=== PATIENT | female | born 1945 | race Caucasian/White ===

== ENCOUNTER → 2018-05-09 07:40 | Outpatient (CLI) | payer BC, MEDICARE, SELFPAY ==
--- NOTE | 2018-05-09 | CA_ITS ---
PROCEDURE: 2-D M-mode and color Doppler study INDICATIONS FOR THE TEST: Chest pain COPD Heart Murmur+ Tobacco Smoking Palpitations Fatigue+ Syncope Edema+ Hypertension+Diabetes Mellitus+ Rheumatic Fever SOB PEÑA+Obesity Hyperlipidemia+ Family History HD Additional History Patient has breast implants, limited visualization in 4 chamber PATIENT INFORMATION HEIGHT: 62 WEIGHT: 130 GENDER: Female B/P: 152/89 2-D/M-MODE INTERPRETATION: 2-D MEASUREMENTS OBSERVED VALUES IN CMS Right Ventricular Dimension (RVDd) 2.3 Interventricular Septum (Thickness)(IVsd) 0.8 Left Ventricular Internal Dimensions(LVIDd) 4.7 Left Ventricular Posterior Wall (Thickness)(LVPWd) 0.7 Aortic Root 2.5 Aortic Cusp Separation 1.6 Left Atrial Dimensions (LAD) 2.2 2D 1. Left atrium is qualitatively mildly enlarged, left ventricle is normal size, there is no concentric left ventricular hypertrophy, visually estimated ejection fraction 55% with no regional wall motion abnormality. 2. The right atrium and the ventricular normal size and contractility. 3. The aortic valve is minimally thickened and fibrosed leaflet continue to display mobility. 4. The mitral and tricuspid valvular grossly normal 5. The pulmonic valve is poorly visualized. 6. No significant pericardial effusion noted. DOPPLER INTERROGATION: Doppler interrogation of the aortic, mitral and tricuspid valvular presence of mild mitral and tricuspid regurgitation, tricuspid regurgitation jet velocity is inadequate for calculation of the right ventricular systolic pressure, grade 1 diastolic dysfunction seen tissue Doppler evidence of raised left atrial pressure. CONCLUSION: 1. Mildly enlarged left atrium, normal left ventricular size, visually estimated ejection fraction 55% with no regional wall motion abnormality, grade 1 diastolic dysfunction seen with tissue Doppler evidence of raised left atrial pressure. 2. Mild mitral and tricuspid regurgitation 3. No significant pericardial effusion noted.
== END ==
PROVIDERS: PCP Family Medicine; Visit Provider Family Medicine
DX: R01.1 Cardiac murmur, unspecified (principal)
CPT/HCPCS: 93306

== ENCOUNTER → 2019-05-29 11:39 | Outpatient (CLI) | payer BC, MEDICARE, SELFPAY ==
--- NOTE | 2019-05-29 11:45 | XR_ITS ---
PROCEDURE: XR HAND RT MIN 3V CLINICAL INDICATION: RT HAND PAIN Pain and swelling COMPARISON: No exams were available for comparison FINDINGS: No fracture or dislocation. No lytic or blastic change. There is normal mineralization. There are moderate osteoarthritic changes at the 2nd DIP joint. Minor osteoarthritic changes are present at the 3rd 4th and 5th DIP joint and the 1st metacarpophalangeal joint. Other findings:None. IMPRESSION: Osteoarthritis Dictated by: Lionel Duenas MD 05/29/2019 12:51 Electronically signed by Lionel Duenas MD in [place] 05/29/2019 12:51
== END ==
PROVIDERS: PCP Family Medicine; Visit Provider Nurse Practitioner
DX: M79.641 Pain in right hand (principal)
CPT/HCPCS: 73130

== ENCOUNTER → 2020-10-23 09:12 | Outpatient (CLI) | payer BC, MEDICARE, SELFPAY ==
--- NOTE | 2020-10-23 09:15 | XR_ITS ---
PROCEDURE: XR DEXA AXIAL SKELETON CLINICAL HISTORY: VITAMIN D DEFICIENCY COMPARISON: No exams were available for comparison FINDINGS: The right hip BMD is 0.623 with a T-score of -2.0. The left hip BMD is 0.587 with a T-score of -2.4. The lumbar spine BMD is 0.805 with a T-score of -2.2. IMPRESSION: This patient is considered osteopenic according to the World Health Organization criteria. Bone density is between 10 and 25 percent below young normal. Fracture risk is moderate. Treatment is advised. Based on these results a follow-up exam is recommended in 2 year. Dictated by: Lionel Duenas MD 10/23/2020 20:18 Lionel Duenas MD in [place] 10/26/2020 08:38
== END ==
PROVIDERS: PCP Family Medicine; Visit Provider Family Medicine
DX: Z13.820 Encounter for screening for osteoporosis (principal); Z78.0 Asymptomatic menopausal state; E55.9 Vitamin D deficiency, unspecified
CPT/HCPCS: 77080

== ENCOUNTER → 2021-11-09 13:39 | Outpatient (CLI) | payer BC, MEDICARE, SELFPAY ==
[2021-11-09 19:05] LABS: Basophils % 0.5 % (0.1-2.0); Eosinophils # 0.1 K/mm3 (0.0-0.4); Eosinophils % 2.7 % (0.1-12.0); Hematocrit 48.6 % (37.0-47.0); Hemoglobin 14.9 g/dL (12.2-16.2); Lymphocytes # 2.3 K/mm3 (0.7-4.5); Lymphocytes % 45.6 % (10-50); Mean Corpuscular HGB Conc 30.7 g/dL (31.8-35.4); Mean Corpuscular Hemoglobin 32.1 pg (27.0-31.2); Mean Corpuscular Volume 104.5 fl (81-99); Mean Platelet Volume 9.6 fl (7.4-10.4); Monocytes # 0.3 K/mm3 (0.1-1.0); Monocytes % 6.7 % (1.7-9.3); Neutrophils # 2.2 K/mm3 (1.8-7.8); Neutrophils % 44.5 % (37.0-80.0); Platelet Count 368 K/mm3 (142-424); Red Blood Count 4.65 M/mm3 (4.20-5.40); Red Cell Distribution Width 12.7 % (11.5-17.5)
== END ==
PROVIDERS: PCP Nurse Practitioner; Visit Provider Nurse Practitioner
DX: R10.32 Left lower quadrant pain (principal); R30.0 Dysuria; B95.7 Other staphylococcus as the cause of diseases classified elsewhere
CPT/HCPCS: 85025; 87086; 87088; 87186

== ENCOUNTER → 2022-08-04 23:16 | Outpatient (CLI) | payer BC, MEDICARE, SELFPAY ==
[2022-08-04 18:38] LABS: Basophils % 0.3 % (0.1-2.0); Eosinophils # 0.1 K/mm3 (0.0-0.4); Eosinophils % 1.1 % (0.1-12.0); Hematocrit 44.7 % (37.0-47.0); Hemoglobin 14.7 g/dL (12.2-16.2); Lymphocytes # 2.4 K/mm3 (0.7-4.5); Lymphocytes % 33.9 % (10-50); Mean Corpuscular HGB Conc 32.8 g/dL (31.8-35.4); Mean Corpuscular Hemoglobin 33.7 pg (27.0-31.2); Mean Corpuscular Volume 102.8 fl (81-99); Mean Platelet Volume 8.7 fl (7.4-10.4); Monocytes # 0.4 K/mm3 (0.1-1.0); Monocytes % 5.5 % (1.7-9.3); Neutrophils # 4.3 K/mm3 (1.8-7.8); Neutrophils % 59.1 % (37.0-80.0); Platelet Count 291 K/mm3 (142-424); Red Blood Count 4.35 M/mm3 (4.20-5.40); Red Cell Distribution Width 13.1 % (11.5-17.5); White Blood Count 7.2 K/mm3 (4.8-10.8)
[2022-08-04 18:48] LABS: Alanine Aminotransferase 21 U/L (12-78); Albumin Level 4.7 g/dl (3.5-5.0); Albumin/Globulin Ratio 1.6 (1.1-1.8); Alkaline Phosphatase 71 U/L (38-126); Anion Gap 11.2 mEq/L (5-15); Aspartate Amino Transferase 37 U/L (14-36); Bilirubin,Total 1.4 mg/dl (0.2-1.3); Blood Urea Nitrogen 14 mg/dl (7-17); Calcium 9.2 mg/dl (8.4-10.2); Carbon Dioxide 26 mmol/L (22.0-30.0); Chloride 104 mmol/L (98-107); Chol/HDL Ratio 2.6 (1-3.5); Cholesterol 221 mg/dl (140-200); Estimated Glomerular Filt Rate 97 ml/min (>60); GFR (African American) 118 ML/MIN (>60); Globulin 2.9 g/dL (1.3-3.2); Glucose 87 mg/dl (74-100); HDL Cholesterol 86 mg/dl (40-60); Potassium 4.2 mmoL/L (3.5-5.1); Sodium 137 mmol/L (136-145); Total Protein,Serum 7.6 g/dl (6.3-8.2); Triglycerides 111 mg/dl (30-150); VLDL Cholesterol 22 mg/dL (0-40)
[2022-08-04 19:05] LABS: Free T4 (Free Thyroxine) 1.61 ng/dl (0.78-2.19)
[2022-08-04 19:18] LABS: Direct LDL Cholesterol 111.19 mg/dL (100-129)
[2022-08-04 19:19] LABS: Thyroid Stimulating Hormone 0.43 uIU/mL (0.465-4.68)
[2022-08-04 19:38] LABS: Vitamin B12 745 pg/mL (239-931)
[2022-08-04 19:54] LABS: Creatinine,Urine Random 15 mg/dL (Not Estab.)
[2022-08-04 20:08] LABS: Hemoglobin A1C 8.5 % (4.0-6.0)
[2022-08-04 20:26] LABS: 25-OH Vitamin D, Total 38.3 ng/mL (30-100)
== END ==
PROVIDERS: PCP Nurse Practitioner; Visit Provider Nurse Practitioner
DX: E03.9 Hypothyroidism, unspecified (principal); E11.9 Type 2 diabetes mellitus without complications; E55.9 Vitamin D deficiency, unspecified; E78.5 Hyperlipidemia, unspecified; I10 Essential (primary) hypertension; K21.9 Gastro-esophageal reflux disease without esophagitis; M19.90 Unspecified osteoarthritis, unspecified site; M81.0 Age-related osteoporosis without current pathological fracture
CPT/HCPCS: 80053; 80061; 82043; 82306; 82570; 82607; 83036; 84439; 84443; 85025

== ENCOUNTER 2022-10-14 08:26 | Day surgery (SDC) | payer BC, MEDICARE, SELFPAY ==
[2022-10-13 08:58] VITALS: BMI 23.0
[2022-10-14 08:42] VITALS: BP 174/83; PULSE 80; RESP 18; TEMP 36.1; O2SAT 94
[2022-10-14 09:03] LABS: POC Glucose,Bedside 113 (70-110)
[2022-10-14 09:21] VITALS: O2SAT 94
--- NOTE | 2022-10-14 10:00 | P.PCN_ITS ---
Procedure: Date: 10/14/22 Patient Date of :: 1945 Procedure Performed:: Colonoscopy with snare polypectomy Indications:: Patient is a 77-year-old referred for screening colonoscopy. She had prior colonoscopy greater than [address] Mata which was reportedly normal. Performing Provider:: Solitario Finley MD Referring Provider:: Sandra Varela Sedation:: MAC sedation Procedure:: Patient history was obtained and appropriate physical examination was performed. Patient's medications and allergies were reviewed. Informed consent was obtained after explaining the benefits, alternatives, and risks of the procedure including, but not limited to, bleeding, perforation, missed lesions, and adverse reaction to anesthesia medications. Patient was transported to endoscopy procedure room. Patient was connected to monitoring devices. Throughout the procedure the patient's blood pressure, pulse, and oxygen saturations were monitored continuously. Patient identification and planned procedure were verified by the staff. Patient was positioned in lateral decubitus position. Digital anorectal exam was performed. Variable stiffness Olympus colonoscope was inserted and advanced under direct visualization to the cecum. Adequacy of the colonic preparation was noted. The colonoscope was then slowly withdrawn while carefully examining the color, texture, anatomy, and integrity of the mucosoa circumferentially. Within the rectum retroflexion was performed. Colonoscope was then withdrawn. Findings:: Colonic preparation was fair with particulate opaque stool and some undigested vegetable matter throughout the colon. This could be mostly cleared. She had some left-sided diverticulosis. There was a small to moderate adenomatous pedu nculated polyp in the sigmoid colon at approximately 40 cm removed with hot snare. Retroflexion within the rectum revealed nonpathologic internal hemorrhoids. Impression: Fair prep Sigmoid diverticulosis Small to moderate adenomatous sigmoid polyp Recommendations:: Follow-up colonoscopy pending pathology. Given the adenomatous polyp and fair prep likely 3 years. Complications:: None immediate Estimated blood obtained (mL): 1 Colonoscopy Component Colonoscopy Component Was a colonoscopy performed during today's procedure?: Yes Recommended follow up colonoscopy of at least 10 years?: No If no, follow up colonoscopy recommended in ___ years?: ~3? Reason for not recommending >/= 10 yr follow-up interval?: Polyp pathology pending. Prep fair.
[2022-10-14 10:05] VITALS: BP 125/72; PULSE 69; RESP 16; TEMP 36.5; O2SAT 95
[2022-10-14 10:15] VITALS: BP 142/80; PULSE 69; RESP 16; O2SAT 96
[2022-10-14 10:25] VITALS: BP 141/74; PULSE 61; RESP 18; O2SAT 96
[2022-10-14 10:35] VITALS: BP 160/88; PULSE 66; RESP 18; TEMP 36.6; O2SAT 96
--- NOTE | 2022-10-14 18:04 | EXP.ANES.CKL ---
[facility] Disclaimer: The information contained in this section may have been updated after the patient was seen, as this information can be updated by other users. Medical History Acquired hypothyroidism Chronic low back pain Diverticulosis of colon Gastroesophageal reflux disease Hyperlipidemia Osteoarthritis Osteoporosis Primary hypertension Type 2 diabetes mellitus without complication Vitamin D deficiency Surgical History Hx of bilateral mastectomy Family History Other Family history of cancer Social History Smoking Status: Never smoker alcohol intake: current substance use type: denies use current occupational status: retired Travel in the last 8 weeks: None [facility] Anesthesia Checklist Patient Identification Patient Identification: Arm Band and Family Structural Data Admitted From: Home Planned Operative Procedure/s: colonoscopy Consent for Planned Operative Procedure(s) Verified: Yes Verified Documents: Surgical Consent and History and Physical NPO Status Verified Time NPO: 00:00 Additional verifications Patient : No Anesthesia Reactions: No Hx Blood Transfusions: No Blood Transfusion Reaction: No Cephalosporin Allergy: No Previous Colonoscopy: No Airway Assessment C-Spine Mobility Assessed: Yes TMJ Mobility Assessed: Yes Dentition: Edentulous Neurological Assessment Level of Consciousness: Awake, Alert, Appropriate and Follows Commands Hx Seizures: No Numbness or tingling in extremities: No Anesthesia Plan Anesthesia Risk discussed: Yes ASA Class: II Anesthesia Type: MAC
== END 2022-10-14 10:35 | disposition home or self-care (01) ==
PROVIDERS: PCP Nurse Practitioner; Visit Provider Surgery
PROC: 0DJD8ZZ Inspection of Lower Intestinal Tract, Via Natural or Artificial Opening Endoscopic (ICD-10-PCS; CPT 45385; principal; 2022-10-14 09:30)
DX: D12.5 Benign neoplasm of sigmoid colon (principal); K57.30 Diverticulosis of large intestine without perforation or abscess without bleeding; Z12.11 Encounter for screening for malignant neoplasm of colon
CPT/HCPCS: 45385; 82962

== ENCOUNTER 2023-10-02 11:07 | Outpatient (CLI) | payer BC, MEDICARE, SELFPAY ==
[2023-10-02 19:32] LABS: Basophils % 0.6 % (0.1-2.0); Eosinophils # 0.1 K/mm3 (0.0-0.4); Eosinophils % 1.5 % (0.1-12.0); Hematocrit 48.8 % (37.0-47.0); Hemoglobin 15.4 g/dL (12.2-16.2); Lymphocytes # 2.6 K/mm3 (0.7-4.5); Lymphocytes % 45.5 % (10-50); Mean Corpuscular HGB Conc 31.4 g/dL (31.8-35.4); Mean Corpuscular Hemoglobin 32.2 pg (27.0-31.2); Mean Corpuscular Volume 102.5 fl (81-99); Mean Platelet Volume 9.3 fl (7.4-10.4); Monocytes # 0.3 K/mm3 (0.1-1.0); Monocytes % 4.8 % (1.7-9.3); Neutrophils # 2.8 K/mm3 (1.8-7.8); Neutrophils % 47.6 % (37.0-80.0); Platelet Count 367 K/mm3 (142-424); Red Blood Count 4.76 M/mm3 (4.20-5.40); Red Cell Distribution Width 13.8 % (11.5-17.5); White Blood Count 5.8 K/mm3 (4.8-10.8)
[2023-10-02 20:00] LABS: Alanine Aminotransferase 18 U/L (12-78); Albumin Level 4.8 g/dl (3.5-5.0); Albumin/Globulin Ratio 1.3 (1.1-1.8); Alkaline Phosphatase 77 U/L (38-126); Aspartate Amino Transferase 37 U/L (14-36); Blood Urea Nitrogen 15 mg/dl (7-17); Calcium 10.6 mg/dl (8.4-10.2); Carbon Dioxide 27 mmol/L (22.0-30.0); Chloride 99 mmol/L (98-107); Chol/HDL Ratio 2.6 (1-3.5); Cholesterol 287 mg/dl (140-200); Estimated Glomerular Filt Rate 70 ml/min (>60); GFR (African American) 84 ML/MIN (>60); Globulin 3.6 g/dL (1.3-3.2); Glucose 115 mg/dl (74-100); HDL Cholesterol 110 mg/dl (40-60); Total Protein,Serum 8.4 g/dl (6.3-8.2); Triglycerides 110 mg/dl (30-150); VLDL Cholesterol 22 mg/dL (0-40)
[2023-10-02 20:12] LABS: Direct LDL Cholesterol 119.87 mg/dL (100-129)
[2023-10-02 20:15] LABS: Free T4 (Free Thyroxine) 1.53 ng/dl (0.78-2.19)
[2023-10-02 20:25] LABS: Potassium 5.1 mmoL/L (3.5-5.1)
[2023-10-02 20:31] LABS: Anion Gap 17.1 mEq/L (5-15); Sodium 138 mmol/L (136-145); Thyroid Stimulating Hormone 1.91 uIU/mL (0.465-4.68)
[2023-10-02 20:50] LABS: Vitamin B12 941 pg/mL (239-931)
[2023-10-02 21:02] LABS: Creatinine,Urine Random 99 mg/dL (Not Estab.)
[2023-10-02 21:25] LABS: Microalbumin/Creatinine Ratio 53.4
[2023-10-02 21:31] LABS: Hemoglobin A1C 5.7 % (4.0-6.0)
== END 2023-10-02 23:59 | disposition home or self-care (01) ==
LOC: LAB.DROPOF 10-04 11:08
PROVIDERS: PCP Nurse Practitioner; Visit Provider Nurse Practitioner
DX: E11.9 Type 2 diabetes mellitus without complications (principal); I10 Essential (primary) hypertension; E78.5 Hyperlipidemia, unspecified; K21.9 Gastro-esophageal reflux disease without esophagitis; E03.9 Hypothyroidism, unspecified; M19.90 Unspecified osteoarthritis, unspecified site; E55.9 Vitamin D deficiency, unspecified; Z68.21 Body mass index [BMI] 21.0-21.9, adult; Z79.84 Long term (current) use of oral hypoglycemic drugs
CPT/HCPCS: 80053; 80061; 82043; 82306; 82570; 82607; 83036; 84439; 84443; 85025

== ENCOUNTER 2024-05-02 09:59 | Outpatient (CLI) | payer BC, MEDICARE, SELFPAY ==
--- NOTE | 2024-05-02 10:06 | XR_ITS ---
FINAL REPORT CLINICAL HISTORY: Hit her Left 5th toe, Checking for fracture FINDINGS: AP, oblique and lateral views of the left foot were obtained. There is no acute fracture or dislocation. There is old fracture deformity of the distal second metatarsal. There is mild degenerative joint disease of the first metatarsal phalangeal joint. Soft tissues are unremarkable. IMPRESSION: Degenerative and chronic appearing findings. Reviewed, Interpreted and Dictated by Brinda Marin MD Transcribed by Maria Dolores Wilson Authenticated and [facility]
--- NOTE | 2024-05-02 10:06 | XR_ITS ---
FINAL REPORT CLINICAL HISTORY: Foot Pain FINDINGS: AP, oblique and lateral views of the right foot were obtained. There is no acute fracture or dislocation. The joint spaces are preserved. Soft tissues are unremarkable. There is a small calcaneal spur. IMPRESSION: No acute osseous abnormality of the right foot. Reviewed, Interpreted and Dictated by Brinda Marin MD Transcribed by Maria Dolores Wilson Authenticated and . [facility]
== END 2024-05-02 23:59 | disposition home or self-care (01) ==
LOC: RAD 10:03
PROVIDERS: PCP Nurse Practitioner; Visit Provider Podiatrist
DX: M79.671 Pain in right foot (principal); M79.672 Pain in left foot
CPT/HCPCS: 73630

== ENCOUNTER 2024-12-25 14:54 | Outpatient (CLI) | payer BC, MEDICARE, SELFPAY ==
[2024-12-25 20:12] LABS: Coronavirus 19, PCR Not Detected (NotDetected); Influenza A, PCR Not Detected (NotDetected); Influenza B, PCR Not Detected (NotDetected)
[2024-12-25 20:26] LABS: Hematocrit 38.9 % (37.0-47.0); Hemoglobin 13.0 g/dL (12.2-16.2); Immature Granulocytes % 0.3 %; Mean Corpuscular HGB Conc 33.4 g/dL (31.8-35.4); Mean Corpuscular Hemoglobin 32.2 pg (27.0-31.2); Mean Corpuscular Volume 96.3 fl (81-99); Nucleated Red Blood Cells % 0 %; Platelet Count 250 K/mm3 (142-424); Red Blood Count 4.04 M/mm3 (4.20-5.40); Red Cell Distribution Width-SD 45.3 fL; White Blood Count 6.7 K/mm3 (4.8-10.8)
[2024-12-25 21:11] LABS: Albumin Level 4.1 g/dl (3.5-5.0); Chloride 107 mmol/L (98-107); Potassium 4.0 mmoL/L (3.5-5.1); Sodium 139 mmol/L (136-145)
[2024-12-25 21:13] LABS: Alanine Aminotransferase 28 U/L (12-78); Anion Gap 11.0 mEq/L (5-15); Aspartate Amino Transferase 46 U/L (14-36); Blood Urea Nitrogen 15 mg/dl (7-17); Carbon Dioxide 25 mmol/L (22.0-30.0); Creatinine,Serum 0.70 mg/dl (0.52-1.04); Estimated Glomerular Filt Rate 81 ml/min (>60); GFR (African American) 98 ML/MIN (>60)
[2024-12-25 21:14] LABS: Albumin/Globulin Ratio 1.6 (1.1-1.8); Alkaline Phosphatase 67 U/L (38-126); Bilirubin,Total 0.6 mg/dl (0.2-1.3); Calcium 9.6 mg/dl (8.4-10.2); Cholesterol 144 mg/dl (140-200); Globulin 2.6 g/dL (1.3-3.2); Glucose 127 mg/dl (74-100); HDL Cholesterol 49 mg/dl (40-60); Total Protein,Serum 6.7 g/dl (6.3-8.2); Triglycerides 117 mg/dl (30-150)
[2024-12-25 21:26] LABS: Hemoglobin A1C 6.0 % (4.0-6.0)
[2024-12-25 21:30] LABS: 25-OH Vitamin D, Total 56.4 ng/mL (30-100)
[2024-12-25 21:33] LABS: Free T4 (Free Thyroxine) 3.63 ng/dl (0.78-2.19)
[2024-12-25 21:45] LABS: Thyroid Stimulating Hormone < 0.02 uIU/mL (0.465-4.68)
[2024-12-25 22:03] LABS: Hepatitis C Ab Qual. W/ RFX NEGATIVE (Negative)
[2024-12-25 23:09] LABS: Vitamin B12 1670 pg/mL (239-931)
--- OUTSIDE RECORDS SUMMARY | 2024-12-26 13:14 | XMS_ITS | Clinical Summary ---
Author Organization [facility] [place] [address] Care Team Providers Care Drapery And Upholstery Estimator Name Role Phone Unavailable Primary Care Provider Unavailabl e Social History Tobacco Use Types Packs/Day Years Used Date Smoking Tobacco: Never Assessed Comments Unknown Sex and Gender Information Value Date Recorded Sex Assigned at Not on file Legal Sex Female 6:25 PM EDT Gender Identity Not on file Sexual Orientation Not on file Plan of Treatment Health Maintenance Due Date Last Done Comments Annual Wellness Exam 1948 Hepatitis C Screening 01/27/1964 DTaP/TDaP/Td (1 - Tdap) 1965 Pneumococcal Vaccine 50+ (1 of 1 - PCV) 01/27/1996 Zoster (1 of 2) 01/27/1996 Bone Density Screening 2011 RSV or 60+ (1 - 1-d ose 75+ series) 2021 COVID-19 Vaccine ( - 2023-2 5 season) 2023 Influenza Vaccine (#1) 2024 Hepatitis B Vaccine Aged Out No longe r eligible based on patient's age to complete this topic Meningococcal B Vaccine Aged Out No l onger eligible based on patient's age to complete this topic
--- OUTSIDE RECORDS SUMMARY | 2024-12-26 13:14 | XMS_ITS | Referral Summary ---
Author Organization [facility] Address [address] [place] [address] Care Team Providers Care Dish Stacker Name Role Phone Abi Hunter MD Unavailable Unavailable Hu Lamar Primary Care Provider [phone] Allergies No known active allergies Medications metformin (GLUCOPHAGE) 500 MG TABS Take 500 mg by mouth daily with breakfast. Active lansoprazole (PREVACID) 30 MG CPDR Take 30 mg by mouth daily. Active amlodipine 5 MG TABS 5 mg, valsartan 160 MG TABS 160 mg Take 1 tablet by mouth daily. Active tramadol (ULTRAM-ER) 100 MG TB24 Take 200 mg by mouth daily. Active risedronate (ACTONEL) 35 MG TABS Take 35 mg by mouth every 7 days. Active levothyroxine (SYNTHROID, LEVOTHROID) 75 MCG TABS Take 75 mcg by mouth daily. Active raloxifene (EVISTA) 60 MG TABS Take 60 mg by mouth daily. Active calcium-vitamin D (OS-JANIE 600 PLUS D) 600-400 MG-UNIT TABS Take 2 tablets by mouth daily. Active vitamin E 200 UNIT CAPS Take 200 Units by mouth daily. Active rosuvastatin (CRESTOR) 10 MG TABS Take 10 mg by mouth daily. 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 Surgery: bilateral Mastectomy And Breast Reconstruction With implants with Dr. Cottrell. Family history: NO Annual Examination Assessment & Plan (09/05/2015 2:22 PM EDT): 08/24/2015 for annual Examination . Bilateral breast 07/14/1998 ( JK ) Pathology: multifocal LCIS and Atypical Lobular Hyperplasia. Surgery: bilateral Mastectomy And Breast Reconstruction With implants with Dr. Cottrell. Family history: NO Assessment & Plan (08/11/2014 10:22 AM EDT): Bilateral breast 07/14/1998 ( JK ) Pathology: multifocal LCIS and Atypical Lobular Hyperplasia. Surgery: bilateral Mastectomy And Breast Reconstruction With implants with Dr. Cottrell. Family history: NO Annual Examination 08/11/2014 Assessment & Plan (08/05/2013 10:16 AM EDT): Bilateral breast 07/14/1998 ( JK ) Pathology: multifocal LCIS and Atypical Lobular Hyperplasia. Surgery: bilateral Mastectomy And Breast Reconstruction With implants with Dr. Cottrell. Family history: NO Annual Examination Assessment & Plan (07/23/2012 11:24 AM EDT): Bilateral breast 07/14/1998 ( JK ) Pathology: multifocal LCIS and Atypical Lobular Hyperplasia. Surgery: bilateral Mastectomy And Breast Reconstruction With implants with Dr. Cottrell. Family history: NO Annual Examination Social History Tobacco Use Types Packs/Day Years Used Date Smoking Tobacco: Never Alcohol Use Standard Drinks/Week Comments No 0 (1 standard drink = 0.6 oz pur e alcohol) Comments Unknown Sex and Gender Information Value Date Recorded Sex Assigned at Not on file Legal Sex Female 10:41 PM EDT Gender Identity Not on file Sexual Orientation Not on file Occupation Industry Job Start Date Job End Date Not on file Not on file Not on file Not on file Last Filed Vital Signs Vital Sign Reading Time Taken Comments Blood Pressure 124/68 08/24/2015 10:37 AM EDT Pulse - - Temperature - - Respiratory Rate - - Oxygen Saturation - - Inhaled Oxygen Concentration - - Weight 61.2 kg (135 lb) 08/24/2015 10:37 AM EDT Height 160 cm (5' 3 ) 08/24/2015 10:37 AM EDT Body Mass Index 23.91 08/24/2015 10:37 AM EDT Plan of Treatment Not on file Insurance MEDICARE on file [employer] NOT MEDICARE MEDICARE on file [employer] NOT MEDICARE Care Teams Dish Stacker Relationship Specialty Start Date End Date Hu Lamar [address] [place] [address] PCP - General 07/20/12 Abi Hunter MD Surgeon General Surgery 07/06/12
--- OUTSIDE RECORDS SUMMARY | 2024-12-26 13:14 | XMS_ITS | Clinical Summary ---
Author Organization [facility] Address [address] [place] [address] Care Team Providers Care Hair Spinner Name Role Phone Abi Hunter MD Unavailable Unavailable Hu Laamr Primary Care Provider [phone] Allergies No known active allergies Medications metformin [...] 08/24/2015 10:37 AM EDT Plan of Treatment Health Maintenance Due Date Last Done Comments Hepatitis C Screening 1945 DTap,Tdap,and Td (1 - Tdap) 1957 Pneumococcal 50+ (1 of 1 - PCV) 01/27/1996 Shingrix (#1) 01/27/1996 DEXA Scan 2011 RSV Vaccine (60+ or ) (1 - 1-dose 75+ series) 2021 Influenza Vaccine (#1) 2024 HPV Aged Out No longer eligi ble based on patient's age to complete this topic Meningococcal conjugate samantha nt 4 (MCV4) Aged Out No longer eligible b ased on patient's age to complete this topic RSV Immunization (<20 months) Aged Out No longer eligible based on patient's age to complete this topic Insurance Greg [facility] MEDICARE on file [employer]AC [employer] NOT MEDICARE MEDICARE on file JAC [employer] NOT MEDICARE Care Teams Hair Spinner Relationship Specialty Start Date End Date Hu Lamar [address] [place] [address] PCP - General 07/20/12 Abi Hunter MD Surgeon General Surgery 07/06/12
--- OUTSIDE RECORDS SUMMARY | 2024-12-26 13:14 | XMS_ITS ---
Author Organization Unknown TREATMENT PLAN Planned Care Start Date Provider Encounter for Check-up [id number] [facility]
== END 2024-12-25 23:59 | disposition home or self-care (01) ==
LOC: LAB.DROPOF 12-26 13:11
PROVIDERS: PCP Nurse Practitioner; Visit Provider Nurse Practitioner
DX: E03.9 Hypothyroidism, unspecified (principal); K21.9 Gastro-esophageal reflux disease without esophagitis; E55.9 Vitamin D deficiency, unspecified; I10 Essential (primary) hypertension; E11.9 Type 2 diabetes mellitus without complications; Z11.59 Encounter for screening for other viral diseases; E78.5 Hyperlipidemia, unspecified; J06.9 Acute upper respiratory infection, unspecified
CPT/HCPCS: 80053; 80061; 82306; 82607; 83036; 84439; 84443; 85025; 86803; 87389; 87636